=== PATIENT | male | born 1990 | race African-American/Black ===

== ENCOUNTER 2017-12-19 00:12 | Emergency (ER) | payer BC ==
[~2017-12-19] VITALS: Ht 182.9 cm; Wt 74.2 kg
[2017-12-19 00:14] VITALS: BP 157/100
[2017-12-19] MEDS ORDERED: LIDOCAINE-MPF 1%, 5ML ONE (01:39)
[2017-12-19] MEDS ORDERED: LIDOCAINE-MPF 1%, 5ML INFIL ONE (02:00)
== END 2017-12-19 02:40 | disposition home or self-care (01) ==
LOC: ED 02:30
DX: S01.81XA Laceration without foreign body of other part of head, initial encounter (principal); G89.11 Acute pain due to trauma; V11.4XXA Pedal cycle driver injured in collision with other pedal cycle in traffic accident, initial encounter; Y93.55 Activity, bike riding; Y92.828 Other wilderness area as the place of occurrence of the external cause; Y99.8 Other external cause status
CPT/HCPCS: 12051